=== PATIENT | female | born 1990 | race Caucasian/White ===

== ENCOUNTER 2019-02-25 15:36 | Emergency (ER) | payer MEDICAID ==
--- NOTE | 2019-02-26 10:20 | Diagnostic Imaging Report ---
CT scan of the brain without contrast History: Headache Total DLP equals 342 CTDI equals 16.4 Axial sections were obtained from the base of the skull to the vertex. There is a normal ventricular system size. No focal parenchymal lesions are seen. No evidence of any mass effect or shift of midline structures. No extra-axial masses or abnormal fluid collections. Impression: Negative examination.
--- NOTE | 2019-02-26 10:21 | Diagnostic Imaging Report ---
CT scan cervical spine History: Headache Total DLP equals 342 CTDI equals 16.4 Axial sections were obtained through the cervical spine region. Additional sagittal and coronal reformatted images are provided. No focal bony lesions are seen. Specifically, no fractures are identified. There is limited visualization of the margins of the cervical spinal cord. No obvious extradural soft tissue abnormalities are seen. The prevertebral soft tissues appear normal. There is a question of mild prominent cervical lymph nodes clinical correlation recommended. Impression: No acute abnormalities.
--- NOTE | 2019-04-02 11:22 | ER Physician Documentation ---
DATE OF SERVICE: 02/25/2019 This is an emergency medical report HISTORY OF PRESENT ILLNESS: This is a 28-year-old female who presents to the Emergency Room with onset x 3 days of intermittent diffuse vascular type headaches that have been intermittent for 3 days, which the patient states is typical of her migraine headaches that she has a chronic history of. The patient denies any trauma, loss of consciousness, altered mental status, altered level of consciousness. The patient denies any recent trauma, earaches, visual or gait changes. The patient denies sore throat. The patient denies weakness, dizziness, vertigo, paresthesias or gait changes. The patient denies neck pain, chest pain, shortness of breath, abdominal pain, anorexia, nausea, vomiting, diarrhea, constipation, fever, chills and/or urinary symptoms. The patient's last normal menstrual period was about a week ago. The patient denies . The patient is eating and urinating well. The patient last urinated about an hour prior to admission. PAST MEDICAL HISTORY: Includes history of migraine headaches. MEDICATIONS: Per nurses' notes. ALLERGIES: Per nurse's notes. FAMILY HISTORY: Per nurses' notes. REVIEW OF SYSTEMS: Otherwise essentially noncontributory. PHYSICAL EXAMINATION: GENERAL: Revealed the patient in no acute distress, alert and oriented x 3. VITAL SIGNS: The patient is afebrile. Vital signs are stable. HEENT: Head is normocephalic, atraumatic. Pupils are equal, round and reactive to light. Fundi benign. Extraocular muscles, TMJs and ears are within normal limits. Pharynx is within normal limits. NECK: Supple. There is no cervical tenderness. No meningeal signs. No bruits. CARDIOVASCULAR: Regular rate and rhythm. LUNGS: Clear with good breath sounds bilaterally. ABDOMEN: Soft, nontender, normoactive bowel sounds. No pulsatile masses. EXTREMITIES: No edema, clubbing or cyanosis. NEUROLOGIC: Shows no focal signs. SKIN: Shows good turgor with moist mucous membranes. HOSPITAL COURSE: The patient improved. The patient's test was negative. CAT scans of the head, brain and cervical spine were negative. The patient tolerated oral fluids while in the ER. The patient subsequently eloped, but discharge instructions were verbally given to the patient, which include the patient is to return to the Emergency Room as needed if existing signs or symptoms should reoccur and/or get worse and/or any other new signs or symptoms should occur. Aftercare instructions have been given for all diagnosis. 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 Followup care with primary physician in one day or as needed. Return to the Emergency Room as needed if concerned. FINAL DIAGNOSES: Vascular headaches, migraine headaches, tension headaches, headaches and migraine vascular cephalgia. [facility]# [id number]
== END 2019-02-25 18:30 | disposition left against medical advice (07) ==
LOC: ER 15:36
DX: G44.1 Vascular headache, not elsewhere classified (principal); G43.909 Migraine, unspecified, not intractable, without status migrainosus; G44.209 Tension-type headache, unspecified, not intractable
CPT/HCPCS: 70450-TC; 72125-TC; 81025-TC